=== PATIENT | female | born 1935 | race Caucasian/White ===

== ENCOUNTER 2018-09-29 12:07 | Observation (INO) | payer OTHER ==
[~2018-09-29] VITALS: Ht 167.6 cm; Wt 90.3 kg
[2018-09-29 12:14] VITALS: Ht 167.6 cm; Wt 90.3 kg
[2018-09-29 13:16] LABS: BASOPHIL % 0.3 % (0-2); PLATELET COUNT 183 x10^3mcL (130-400); RED CELL DISTRIBUTION WIDTH 15.3 % (11.5-14.5)
[2018-09-29 13:22] LABS: CALCIUM 9.1 mg/dL (8.5-10.1); CARBON DIOXIDE 32.1 mmol/L (21-32); CHLORIDE SERUM 100 mmol/L (98-107); GLUCOSE SERUM 111 mg/dL (74-106); POTASSIUM SERUM 3.6 mmol/L (3.5-5.1); SODIUM SERUM 137 mmol/L (136-145)
[2018-09-29 13:26] LABS: ALKALINE PHOSPHATASE 43 U/L (46-116); ALT/SGPT 23 U/L (14-59); AST/SGOT 18 U/L (15-37); BILIRUBIN TOTAL 0.5 mg/dL (0.20-1.00); LIPASE 60 IU/L (73-393)
[2018-09-29 13:27] LABS: ALBUMIN 3.3 g/dL (3.4-5.0)
[2018-09-29 15:57] LABS: microscopic required? YES; urine erythrocyte NEGATIVE (NEGATIVE)
[2018-09-29] MEDS ORDERED: PRA40 PO (19:13)
[2018-09-29] MEDS ORDERED: LEXAPRO5 M1 PO (19:13)
[2018-09-29] MEDS ORDERED: BENAZEPRIL HYDR20 M1 (19:13)
[2018-09-29] MEDS ORDERED: GELNIQUE100 MG/GM PO (19:13)
[2018-09-29] MEDS ORDERED: AMIODARONE HCL200 MG PO (19:13)
[2018-09-29] MEDS ORDERED: GABAPENTIN100 M2 PO (19:13)
[2018-09-29] MEDS ORDERED: XARELTO10 M1 PO (19:14)
[2018-09-29] MEDS ORDERED: MIRALAX17 GM/Dose (19:14)
[2018-09-29] MEDS ORDERED: [UNRECOGNIZED DRUG - CODE] (19:14)
[2018-09-29] MEDS ORDERED: ALPRAZOLAM0.25 MG PO (19:14)
[2018-09-29] MEDS ORDERED: MELATONIN3 MG (19:14)
[2018-09-29 20:55] VITALS: BP 149/52
[2018-09-29] MEDS ORDERED: BENAZEPRIL HCL/1 TAB PO (21:12)
[2018-09-29] MEDS ORDERED: MIRALAX17 GM/Dose PO (21:13)
[2018-09-30 06:05] VITALS: BP 117/41
[2018-09-30 07:02] LABS: BASOPHIL % 0.2 % (0-2); PLATELET COUNT 157 x10^3mcL (130-400)
[2018-09-30 07:10] LABS: ALKALINE PHOSPHATASE 44 U/L (46-116); ALT/SGPT 20 U/L (14-59); AST/SGOT 16 U/L (15-37); BILIRUBIN TOTAL 0.47 mg/dL (0.20-1.00); CALCIUM 8.7 mg/dL (8.5-10.1); CARBON DIOXIDE 28.3 mmol/L (21-32); CHLORIDE SERUM 103 mmol/L (98-107); CREATININE SERUM 0.8 mg/dL (0.6-1.0); GLUCOSE SERUM 115 mg/dL (74-106); MAGNESIUM 2.3 mg/dL (1.8-2.4); POTASSIUM SERUM 3.1 mmol/L (3.5-5.1); SODIUM SERUM 137 mmol/L (136-145)
[2018-09-30 07:13] LABS: ALBUMIN 2.8 g/dL (3.4-5.0); TOTAL PROTEIN, SERUM 5.5 g/dL (6.4-8.2)
[2018-09-30 07:47] LABS: RED CELL DISTRIBUTION WIDTH 15.4 % (11.5-14.5)
[2018-09-30 09:14] VITALS: BP 119/47
[2018-09-30 11:51] VITALS: BP 119/47
== END 2018-09-30 15:18 | disposition home or self-care (01) | DRG 390 ==
LOC: ED 12:07 → MU 19:12
PROVIDERS: Emergency Medicine; ADMIT Internal Medicine Pulmonary Disease
DX: K56.609 Unspecified intestinal obstruction, unspecified as to partial versus complete obstruction (principal); I11.9 Hypertensive heart disease without heart failure; I25.10 Atherosclerotic heart disease of native coronary artery without angina pectoris; I48.2 Chronic atrial fibrillation; M25.561 Pain in right knee; Z95.5 Presence of coronary angioplasty implant and graft; Z85.820 Personal history of malignant melanoma of skin; Z85.72 Personal history of non-Hodgkin lymphomas; Z85.048 Personal history of other malignant neoplasm of rectum, rectosigmoid junction, and anus; Z85.038 Personal history of other malignant neoplasm of large intestine; Z93.3 Colostomy status
CPT/HCPCS: G0378; J0696; J1885; J2270; J2405; J3480; J7030; J7042; Q0092

== ENCOUNTER 2019-02-16 08:47 | Inpatient (IN) | payer OTHER ==
[~2019-02-16] VITALS: Ht 167.6 cm; Wt 90.9 kg
[~2019-02-16 08:47] MED LIST: ALPRAZOLAM0.25 MG PO; AMIODARONE HCL200 MG PO; BENAZEPRIL HCL/1 TAB PO; BENAZEPRIL HYDR20 M1; GABAPENTIN100 M2 PO; GELNIQUE100 MG/GM PO; LEXAPRO5 M1 PO; MELATONIN3 MG; MIRALAX17 GM/Dose; MIRALAX17 GM/Dose PO; PRA40 PO; XARELTO10 M1 PO; [UNRECOGNIZED DRUG - CODE]
[2019-02-16 09:24] VITALS: BP 127/62
[2019-02-16] MEDS ORDERED: AMIODARONE HCL100 MG PO (10:23)
[2019-02-16] MEDS ORDERED: PRA10 PO (10:24)
[2019-02-16] MEDS ORDERED: NEU300 PO (10:24)
[2019-02-16] MEDS ORDERED: ESCITALOPRAM OX10 MG PO (10:24)
[2019-02-16] MEDS ORDERED: XARELTO10 M1 PO (10:24)
[2019-02-16] MEDS ORDERED: OXYBUTYNIN CHLOR5 MG PO (10:25)
[2019-02-16 15:06] VITALS: BP 105/54
[2019-02-16 15:10] VITALS: Ht 167.6 cm; Wt 90.9 kg
[2019-02-16 17:30] VITALS: BP 136/61
[2019-02-16 20:34] VITALS: BP 107/45
[2019-02-17 05:27] VITALS: BP 141/56
[2019-02-17 06:27] LABS: CALCIUM 8.2 mg/dL (8.5-10.1); CARBON DIOXIDE 31.5 mmol/L (21-32); CHLORIDE SERUM 95 mmol/L (98-107); CREATININE SERUM 1.1 mg/dL (0.6-1.0); GLUCOSE SERUM 97 mg/dL (74-106); POTASSIUM SERUM 4.9 mmol/L (3.5-5.1); SODIUM SERUM 129 mmol/L (136-145)
[2019-02-17 07:48] VITALS: BP 104/54
[2019-02-17 11:46] VITALS: BP 108/51
[2019-02-17 16:31] VITALS: BP 100/70
[2019-02-17 21:00] VITALS: BP 167/74
[2019-02-18 03:50] VITALS: BP 113/53
[2019-02-18 07:30] LABS: CALCIUM 7.9 mg/dL (8.5-10.1); CARBON DIOXIDE 25.5 mmol/L (21-32); CHLORIDE SERUM 92 mmol/L (98-107); CREATININE SERUM 0.8 mg/dL (0.6-1.0); GLUCOSE SERUM 108 mg/dL (74-106); POTASSIUM SERUM 3.8 mmol/L (3.5-5.1)
[2019-02-18 07:32] LABS: BASOPHIL % 0.3 % (0-2); PLATELET COUNT 149 x10^3mcL (130-400); RED CELL DISTRIBUTION WIDTH 14.2 % (11.5-14.5)
[2019-02-18 07:53] LABS: SODIUM SERUM 124 mmol/L (136-145)
[2019-02-18 10:10] VITALS: BP 140/52
[2019-02-18 13:25] VITALS: BP 143/46
[2019-02-18 15:00] VITALS: BP 128/76
[2019-02-18 15:59] VITALS: BP 143/50
== END 2019-02-18 18:59 | disposition home or self-care (01) | DRG 470 ==
LOC: MU 08:47 → DU 08:47
PROVIDERS: ADMIT Orthopaedic Surgery
PROC: 0SRC0J9 Replacement of Right Knee Joint with Synthetic Substitute, Cemented, Open Approach (ICD-10-PCS; principal; 2019-02-16 10:30)
DX: M17.11 Unilateral primary osteoarthritis, right knee (principal)
CPT/HCPCS: 97112-GP; 97116-GP; 97530-GP; C1713; C1776; G0378; J0690; J1170; J1885; J2270; J2274; J2704; J3490; J7030; J7120